=== PATIENT | male | born 1985 | race Caucasian/White ===

== ENCOUNTER 2017-03-29 06:55 | Day surgery (SDC) | payer OTHER ==
[2017-03-29] VITALS (15 sets, daily range): BP systolic 81–113; BP diastolic 52–72; PULSE 47–97; RESP 8–21; Ht 185.4 cm; Wt 87.0 kg
[~2017-03-29] VITALS: Ht 185.4 cm; Wt 87.0 kg
[~2017-03-29 06:55] MED LIST: BUPIVACAINE 0.5% (SDV) 30 ML INJ INJ ONE; CEFAZOLIN 2 GM/50 ML (PMX) 50 ML IVPB SCH; LIDOCAINE 2% (MDV) 20 ML INJ INJ ONE; SOD CHLORIDE 0.9% 1,000 ML IV SCH
[2017-03-29] MEDS ORDERED: CEFAZOLIN 1 GM INJ ONE (07:00)
[2017-03-29] MEDS ORDERED: LIDOCAINE 2% (SDV) 5 ML INJ ONE (08:41)
[2017-03-29] MEDS ORDERED: PROPOFOL 40 ML ONE (08:41)
[2017-03-29] MEDS ORDERED: MIDAZOLAM 1 MG/ML 2 ML INJ ONE (08:42)
[2017-03-29] MEDS ORDERED: FENTAnyl 50 MCG/ML VIAL ONE (08:42)
[2017-03-29] MEDS ORDERED: LIDOCAINE 2% (MDV) 20 ML INJ ONE (08:48)
[2017-03-29] MEDS ORDERED: BUPIVACAINE 0.5% (SDV) 30 ML INJ ONE (08:48)
[2017-03-29] MEDS ORDERED: MEPERIDINE 25 MG INJ IV PRN (09:00)
[2017-03-29] MEDS ORDERED: ONDANSETRON 4 MG INJ IV PRN (09:00)
[2017-03-29] MEDS ORDERED: FENTAnyl 50 MCG/ML VIAL IV PRN ×3 (09:00)
[2017-03-29] MEDS ORDERED: OXYCODONE/ACETAMINOPHEN (5/325) TAB PO PRN ×2 (09:00)
[2017-03-29] MEDS ORDERED: hydrALAzine 20 MG INJ IV PRN (09:00)
[2017-03-29] MEDS ORDERED: KETOROLAC 30 MG INJ IV PRN (09:00)
[2017-03-29] MEDS ORDERED: EPHEDrine SULFATE 50 MG/5 ML SYG IV PRN (09:00)
[2017-03-29] MEDS ORDERED: LABETALOL HCL 20MG INJ IV PRN (09:00)
[2017-03-29] MEDS ORDERED: DIPHENHYDRAMINE 50 MG INJ IV PRN (09:00)
[2017-03-29] MEDS ORDERED: HYDROCODONE/APAP (5/325) TAB PO ONE (09:30)
--- NOTE | 2017-03-29 09:30 | OPR ---
Date/Time of Note Date/Time of Note DATE: 03/29/17 TIME: 09:26 Operative Report Procedure Date: Mar 29, 2017 Preoperative Diagnosis back mass x 2 Postoperative Diagnosis same Operation Performed 1. excision of left upper back mass 5 cm incision and 5 x 3 cm mass 2. excision of right upper back mass 5 cm incision and 5 x 3 cm mass 3. localized adjacent tissue transfer with the use of skin flaps 30 sq cm defect 4. therapeutic injection of subcutaneous marcaine cpt code [id number] Surgeon: Cesar TORO Anesthesia Type: MAC Estimated Blood Loss: 0 - 10 ml's Specimens left upper back mass right upper back mass Grafts/Implants: none Complications: no Indications This is a 32-year-old male with left upper back mass and right upper back mass. He requires surgical excision. Risks alternatives benefits and personnel were discussed with patient. Patient expresses understanding consents to the operation. Procedure Description Patient is taken to the OR prepped and draped in usual sterile fashion. Surgical timeout was performed. IV antibiotics given. Left upper back mass is dressed with initially subcutaneous local anesthesia throughout the incision over the mass. The right upper back mass is also infiltrated with subcutaneous local anesthesia. 15 blade is used to make incision over the left upper back mass. Part of the skin was also excised due to its adherence to the mass. The mass is excised en bloc. Hemostasis is established with cautery. Due to tissue defect localized adjacent tissue transfer with use of skin flaps was performed. Multilayer closure with interrupted 3-0 Vicryl and skin kyleigh. The right back mass is addressed in a similar fashion with the 15 blade. The mass is excised en bloc with part of the skin which was including the mass. The mass is excised en bloc to the deeper tissues. Due to large tissue defect localized adjacent to his transfer with these of skin flaps were performed. Multilayer closure with interrupted 3-0 Vicryl and skin kyleigh. Local anesthesia is infiltrated therapeutically along the incision lines of both sites. Dry dressings were applied. Cesar TORO Mar 29, 2017 09:30
== END 2017-03-29 11:50 | disposition home or self-care (01) ==
LOC: SDS 06:55
PROVIDERS: ATTEND Surgery
DX: L72.0 Epidermal cyst (principal)
CPT/HCPCS: 14001; 88307; J0690; J2250; J3010